=== PATIENT | female | born 1950 | race Caucasian/White ===

== ENCOUNTER 2019-06-20 04:57 | Day surgery (SDC) | payer MEDICARE, BC ==
[2019-06-16 13:50] LABS: BASOPHILS # (AUTO) 0.1 X10'3 (0-0.2); BASOPHILS % (AUTO) 0.9 % (0-1); EOSINOPHILS # (AUTO) 0.1 X10'3 (0-0.9); EOSINOPHILS % (AUTO) 1.6 % (0-6); HEMATOCRIT 38.6 % (35.0-45.0); HEMOGLOBIN 13.2 g/dl (12.0-16.0); LYMPHOCYTES # (AUTO) 2.4 X10'3 (1.1-4.8); LYMPHOCYTES % (AUTO) 30.5 % (21-51); MEAN CORPUSCULAR HEMOGLOBIN 30.1 PG (27.0-31.0); MEAN CORPUSCULAR HGB CONC 34.2 g/dL (33.0-36.5); MEAN CORPUSCULAR VOLUME 87.9 FL (78-98); MEAN PLATELET VOLUME 7.7 FL (7.4-10.4); MONOCYTES # (AUTO) 0.4 X10'3 (0-0.9); MONOCYTES % (AUTO) 5.3 % (2-12); NEUTROPHILS # (AUTO) 4.9 X10'3 (1.8-7.7); NEUTROPHILS % (AUTO) 61.7 % (42-75); PLATELET COUNT 344 X10'3 (140-440); RED BLOOD COUNT 4.39 X10'6 (4.20-5.60); RED CELL DISTRIBUTION WIDTH 13.6 % (11.5-14.5)
[2019-06-16 13:57] LABS: ALBUMIN 4.1 G/DL (3.4-5.0); ANION GAP 8 (8-16); BLOOD UREA NITROGEN 16 MG/DL (7-18); BUN/CREATININE RATIO 13.8 (6.6-38.0); CALCIUM 9.8 MG/DL (8.5-10.1); CHLORIDE 99 MMOL/L (99-107); CREATININE 1.16 MG/DL (0.40-0.90); GLUCOSE 169 MG/DL (70-104); PARTIAL THROMBOPLASTIN TIME 25 SECONDS (22-32); POTASSIUM 4.7 MMOL/L (3.5-5.1); SODIUM 135 MMOL/L (135-145); TOTAL CARBON DIOXIDE 27.6 MMOL/L (24-32); eGFR 46 ML/MIN
[~2019-06-20] VITALS: Ht 167.6 cm; Wt 82.4 kg
[2019-06-20] VITALS (12 sets, daily range): BP systolic 92–129; BP diastolic 46–64
[2019-06-20] MEDS ORDERED: LORazepam 0.5 MG tablet PO PRN (05:25)
[2019-06-20] MEDS ORDERED: diphenhydrAMINE 25mg capsule PO PRN (05:25)
[2019-06-20] MEDS ORDERED: normal saline 1,000 ML IV SCH (05:25)
[2019-06-20] MEDS ORDERED: LISI-600 (05:30)
[2019-06-20] MEDS ORDERED: ALBUTEROL (05:30)
[2019-06-20] MEDS ORDERED: METF-950 (05:30)
[2019-06-20] MEDS ORDERED: ALBU6.7H9 (05:30)
[2019-06-20] MEDS ORDERED: FENO145T25 (05:30)
[2019-06-20] MEDS ORDERED: METO50TA16 (05:30)
[2019-06-20] MEDS ORDERED: ZOLP10TA5 (05:30)
[2019-06-20] MEDS ORDERED: ATOR-2 (05:30)
[2019-06-20] MEDS ORDERED: CYCL-1 (05:30)
[2019-06-20] MEDS ORDERED: ASPI-611 PO (05:33)
[2019-06-20] MEDS ORDERED: ATRIN INH (05:33)
[2019-06-20] MEDS ORDERED: DULO-31 PO (05:33)
[2019-06-20] MEDS ORDERED: PREG100C PO (05:33)
[2019-06-20] MEDS ORDERED: iohexol 350MG/ML 100ml bottle IV ONE (06:06)
[2019-06-20] MEDS ORDERED: midazolam 2 mg/2 ml injection ONE (06:06)
[2019-06-20] MEDS ORDERED: LIDOcaine 1% (10mg/ml)w/preservative injection 20ml MDV ONE (06:06)
[2019-06-20] MEDS ORDERED: fentaNYL/PF 50MCG/1 ML 2ML syringe ONE (06:06)
[2019-06-20] MEDS ORDERED: acetaminophen 325mg tablet PO PRN (07:10)
[2019-06-20] MEDS ORDERED: HYDROcodone/acetaminophen 5mg/325mg tablet PO PRN (07:10)
[2019-06-20] MEDS ORDERED: ondansetron/PF 4mg/2ml inj IV PRN (07:10)
[2019-06-20] MEDS ORDERED: OXAZEpam 15mg capsule PO PRN (07:10)
[2019-06-20] MEDS ORDERED: HYDROcodone/acetaminophen 10/325mg tab PO PRN (07:10)
[2019-06-20] MEDS ORDERED: proCHLORperazine 10 MG/2 ml inj IV PRN (07:10)
== END 2019-06-20 10:05 | disposition home or self-care (01) ==
LOC: SSTAY O 04:57
PROVIDERS: ATTEND Internal Medicine Interventional Cardiology
DX: R94.39 Abnormal result of other cardiovascular function study (principal); I25.10 Atherosclerotic heart disease of native coronary artery without angina pectoris; J34.9 Unspecified disorder of nose and nasal sinuses; I10 Essential (primary) hypertension; M81.0 Age-related osteoporosis without current pathological fracture; E78.5 Hyperlipidemia, unspecified; E11.9 Type 2 diabetes mellitus without complications; Z88.5 Allergy status to narcotic agent; Z79.899 Other long term (current) drug therapy; Z79.84 Long term (current) use of oral hypoglycemic drugs; Z87.891 Personal history of nicotine dependence; Z79.01 Long term (current) use of anticoagulants
CPT/HCPCS: 36415; 80048; 82948; 85025; 85610; 85730; 93005; 93458; 99152; C1769; J1644; J2001; J2250; J3010; J7030; Q0163; Q9967; A4620; A6258

== ENCOUNTER 2021-03-28 11:06 | Outpatient (CLI) | payer MEDICARE, BC ==
[~2021-03-28 11:06] MED LIST: ALBU6.7H9; ALBUTEROL; ASPI-611 PO; ATOR-2; ATRIN INH; CYCL-1; DULO-31 PO; FENO145T25; LISI20TA28; METF-1203; METO50TA16; PREG100C PO; ZOLP10TA5
== END 2021-03-28 23:59 | disposition home or self-care (01) ==
LOC: RAD 11:06
PROVIDERS: ATTEND Psychiatry & Neurology Neurology
DX: E11.42 Type 2 diabetes mellitus with diabetic polyneuropathy (principal); R26.0 Ataxic gait
CPT/HCPCS: 95816